=== PATIENT | male | born 1970 | race Two or more races ===

== ENCOUNTER 2023-12-16 11:20 | Emergency (ER) | payer OTHER ==
[~2023-12-16] VITALS: Ht 162.6 cm; Wt 61.0 kg
[2023-12-16 14:31] VITALS: BP 123/71; PULSE 78; RESP 16; TEMP 97.8; O2SAT 98
== END 2023-12-16 16:43 | disposition home or self-care (01) ==
LOC: EDBD 11:20 → ER 11:20
DX: T16.2XXA Foreign body in left ear, initial encounter (principal); Z87.821 Personal history of retained foreign body fully removed; W44.8XXA Other foreign body entering into or through a natural orifice, initial encounter; Y93.E8 Activity, other personal hygiene; Y92.89 Other specified places as the place of occurrence of the external cause; Y99.8 Other external cause status
CPT/HCPCS: 69200